=== PATIENT | female | born 1965 | race Caucasian/White ===

== ENCOUNTER → 2022-05-12 09:19 | Outpatient (CLI) | payer BC, SELFPAY ==
--- NOTE | 2022-05-12 09:29 | CA_ITS ---
APPROVED REPORT EXAM: Comprehensive 2D, Doppler, and color-flow Echocardiogram Operations Administrative Assistant: EDNA Medina, RVS Ht: 5 ft 3 in Wt: 220lbs BSA: 2.01 BP: 151/92 mmHg Indications: HTN, MURMUR, CAD 2D Dimensions Aortic Root 2.90 cm LA Volume 53.00 mL Left Atrium 3.10 cm LA Volume Index 26.718481 mL/m2 (M/F) 16-34 LVOT 1.90 cm (M/F) 1.5-2.5 M-Mode Dimensions RVDd 2.00 cm (0.9-2.6) LVDd 4.90 cm (3.5-5.7) LVDs 2.90 cm (3.5-5.7) AV Cusp 2.00 cm (1.5-2.6) IVSd 1.20 cm (0.6-1.1) PWd 1.10 cm (0.6-1.1) EF (Teich) 71.50% EPSs 0.60 cm FS 40.80% EDV (Teich) 113.00 mL ESV (Teich) 32.20 mL LV Diastology E Decel Time 215.00 (160-240 msec) E/A Ratio 1.50 MED E' 8.87 (< 7 cm/sec) E'/MED E' Ratio 9.60 (>14) LAT E' 12.10 (<10 cm/sec) E/LAT E' Ratio 7.00 (>14) Aortic Valve LVOT Max 83.50 (70-110 cm/s) LVOT VTI 18.80 cm AoV Peak Tee. 128.00 (50-130 cm/s) AO Peak GR. 7.00 mmHg AO Mean GR. 3.00 (<5 mmHg) AO VTI 25.50 (18-25 cm) VALE (VTI) 2.09 (2.5-4.5 cm2) Mitral Valve MV E Max Tee. 84.90 (40-130 cm/s) MV A Velocity 55.80 (40-130 cm/s) E/A Ratio 1.50 MV Decel. Time 215.00 (160-240 ms) Pulmonary Valve PV Peak Velocity 67.60 (50-150 cm/s) Tricuspid Valve TR P. Velocity 230.00 cm/s RAP Estimate 10.00 mmHg RVSP 31.00 mmHg Left Ventricle Technically difficult study because of the patient factors and poor acoustic windows. Left atrium is mildly enlarged, left ventricle is normal size mild concentric left ventricular hypertrophy, estimated ejection fraction 55% with no regional wall motion abnormality, endocardial surfaces are poorly visualized. Diastolic parameters are inconclusive. Right Ventricle Right atrium and right ventricle are normal size and contractility. Aortic Valve Aortic valve is minimally thickened and fibrosed there is no aortic stenosis or aortic insufficiency. Mitral Valve Mitral valve is grossly normal, there is mild mitral regurgitation. Tricuspid Valve Tricuspid valve grossly normal, there is no significant tricuspid regurgitation. Pulmonic Valve Pulmonic valve is poorly visualized. Great Vessels Aortic root is normal size. Inferior vena cava is poorly visualized. Pericardium No significant pericardial effusion noted. Conclusion 1. Normal left ventricular size mild concentric left ventricular hypertrophy, estimated ejection fraction 55% with no regional wall motion abnormality, diastolic parameters are inconclusive. 2. Mild mitral regurgitation. 3. No significant pericardial effusion. 4. Inferior vena cava is poorly visualized. Electronically signed by : Dax Garcia MD 05/13/2022 07:09:11
== END ==
PROVIDERS: PCP Internal Medicine; Visit Provider Internal Medicine
DX: I10 Essential (primary) hypertension (principal); Z82.49 Family history of ischemic heart disease and other diseases of the circulatory system; I25.10 Atherosclerotic heart disease of native coronary artery without angina pectoris
CPT/HCPCS: 93306